=== PATIENT | male | born 1960 | race American Indian/Alaskan Native ===

== ENCOUNTER 2017-10-20 11:56 | Emergency (ER) | payer OTHER ==
[2017-10-20 12:31] VITALS: RESP 18
--- NOTE | 2017-10-20 12:43 | C.PDOC ---
History Of Present Illness 57 y/o male brought in by EMS from health fair at work due to elevated blood pressure. Patient states he works for [employer], and at their health fair today his blood pressure was found to be ~200/100. He offers no physical complaints. States he was diagnosed with HTN previously and given medication that he does not take. He denies any headache, nausea, vomiting, dizziness, chest pain, or SOB. On arrival, blood pressure is 204/104. Time Seen by Provider: 10/20/17 12:18 Chief Complaint (Nursing): High Blood Pressure History Per: Patient History/Exam Limitations: no limitations Current Symptoms Are (Timing): Gone Quality Of Symptoms: Asymptomatic Exacerbating Factor(s): Pos: None Past Medical History Reviewed: Historical Data, Nursing Documentation, Vital Signs Vital Signs: Last Vital Signs Temp 97.8 F 10/20/17 14:59 Pulse 70 10/20/17 14:59 Resp 18 10/20/17 14:59 BP 182/96 H 10/20/17 14:59 Pulse Ox 97 10/20/17 14:59 - Medical History PMH: HTN (no meds taken) Surgical History: No Surg Hx Family History: States: No Known Family Hx - Social History Hx Tobacco Use: Yes Hx Alcohol Use: No Hx Substance Use: No Review Of Systems Except As Marked, All Systems Reviewed And Found Negative. Constitutional: Negative for: Fever, Chills Cardiovascular: Negative for: Chest Pain Respiratory: Negative for: Shortness of Breath Gastrointestinal: Negative for: Nausea, Vomiting Neurological: Negative for: Weakness, Numbness, Headache, Dizziness Physical Exam - Physical Exam Appears: Well, Non-toxic, No Acute Distress Skin: Warm, Dry Head: Atraumatic, Normacephalic Eye(s): bilateral: Normal Inspection, PERRL, EOMI Nose: Normal Oral Mucosa: Moist Neck: Supple Chest: Symmetrical Cardiovascular: Rhythm Regular, No Murmur Respiratory: Normal Breath Sounds, No Rales, No Rhonchi, No Wheezing Gastrointestinal/Abdominal: Soft, No Tenderness, No Distention Extremity: Bilateral: Atraumatic, Normal Color And Temperature, Normal ROM Neurological/Psych: Oriented x3, Normal Speech, Normal Cranial Nerves, Normal Motor, Normal Sensation Gait: Steady ED Course And Treatment - Laboratory Results Result Diagrams: 10/20/17 13:45 10/20/17 13:45 Lab Interpretation: Normal ECG: Interpreted By Me ECG Rhythm: Sinus Bradycardia, Nonspecific Changes ECG Interpretation: No Acute Changes Rate From EC O2 Sat by Pulse Oximetry: 96 (RA) Pulse Ox Interpretation: Normal - Radiology CXR: Interpreted by Me CXR Interpretation: Yes: No Acute Disease - Other Rad CXR X-Ray: Viewed By Me, Read By Radiologist Interpretation: FINDINGS: LUNGS: No active pulmonary disease. PLEURA: No significant pleural effusion identified. No pneumothorax apparent. CARDIOVASCULAR: Normal. OSSEOUS STRUCTURES: Degenerative changes. VISUALIZED UPPER ABDOMEN: Normal. OTHER FINDINGS: None. IMPRESSION: No active disease. Progress Note: treated with norvasc 10 mg PO. Patient has no complains at this time. Advised to follow up with PMD or clinic Reassessment Condition: Improved Medical Decision Making Medical Decision Making: Impression: Uncontrolled hypertension Initial Plan: --Norvasc 10 mg PO --EKG --Labs --Chest X-Ray --Reassess after medication given Disposition Counseled Patient/Family Regarding: Studies Performed, Diagnosis, Need For Followup, Rx Given - Disposition Referrals: [facility] [Outside] [facility] [Outside] Disposition: HOME/ ROUTINE Disposition Time: 14:30 Condition: STABLE Additional Instructions: Follow up with your PMD or clinic for further evaluation Prescriptions: amLODIPine [Norvasc] 5 mg PO DAILY #20 tab Forms: [employer] (Spanish) - POA Present On Arrival: None - Clinical Impression Clinical Impression: Hypertension - PA / SYSTEMS LEAD / Resident Statement MD/DO has reviewed & agrees with the documentation as recorded. - Scribe Statement The provider has reviewed the documentation as recorded by the Scribe (Jennifer Guerra) All medical record entries made by the Scribe were at my direction and personally dictated by me. I have reviewed the chart and agree that the record accurately reflects my personal performance of the history, physical exam, medical decision making, and the department course for this patient. I have also personally directed, reviewed, and agree with the discharge instructions and disposition.
--- NOTE | 2017-10-20 13:24 | RAD ---
Date of service: 10/20/2017 HISTORY: SOB COMPARISON: No prior. TECHNIQUE: Chest PA and lateral FINDINGS: LUNGS: No active pulmonary disease. PLEURA: No significant pleural effusion identified. No pneumothorax apparent. CARDIOVASCULAR: Normal. OSSEOUS STRUCTURES: Degenerative changes. VISUALIZED UPPER ABDOMEN: Normal. OTHER FINDINGS: None. IMPRESSION: No active disease.
[2017-10-20 13:52] LABS: BASO % 0.5 % (0.0-2.0); EOS # 0.1 K/uL (0.0-0.7); EOS % 1.7 % (0.0-4.0); HEMOGLOBIN 14.3 g/dL (12.0-18.0); LYMPH # 1.5 K/uL (1.0-4.3); LYMPH % 35.8 % (20.0-40.0); MEAN CELL VOLUME 82.6 fL (80.0-94.0); MEAN CORPUSCULAR HEMOGLOBIN 28.2 pg (27.0-31.0); MEAN CORPUSCULAR HGB CONC 34.2 g/dL (33.0-37.0); MONO # 0.3 K/uL (0.0-0.8); NEUT # 2.4 K/uL (1.8-7.0); RBC 5.07 Mil/uL (4.40-5.90); RED CELL DISTRIBUTION WIDTH 14.4 % (11.5-14.5); WHITE BLOOD COUNT 4.3 K/uL (4.8-10.8)
[2017-10-20 13:53] LABS: SQUAMOUS EPITHIAL < 1 /hpf (0-5); URINE AMORPHOUS SEDIMENT RARE /ul (<OCC); URINE BILIRUBIN NEGATIVE (NEGATIVE); URINE BLOOD NEGATIVE (NEGATIVE); URINE CLARITY Hazy (Clear); URINE COLOR Yellow (YELLOW); URINE GLUCOSE (UA) NORMAL (Normal); URINE LEUKOCYTE ESTERASE NEG Leu/uL (Negative); URINE PROTEIN NEGATIVE (NEGATIVE); URINE UROBILINOGEN NORMAL mg/dL (0.2-1.0)
[2017-10-20 14:03] LABS: ALB/GLOB RATIO 1.2 (1.0-2.1); ALBUMIN 4.3 g/dL (3.5-5.0); ALT/SGPT 116 U/L (21-72); AST/SGOT 80 U/L (17-59); BLOOD UREA NITROGEN 15 mg/dL (9-20); CALCIUM 9.3 mg/dl (8.6-10.4); GFR NON-AFRICAN AMERICAN > 60
[2017-10-20 15:00] VITALS: BP 182/96; PULSE 70; TEMP 97.8
[2017-10-20 17:38] VITALS: O2SAT 96
--- NOTE | 2017-10-21 20:13 | CARD ---
APPROVED REPORT Date of service: 10/20/2017 EKG Measurement Heart [id number] MA [id number] [id number] <Conclusion> Sinus bradycardia Minimal voltage criteria for LVH, may be normal variant T wave abnormality, consider inferior ischemia Abnormal ECG
== END 2017-10-20 15:00 | disposition home or self-care (01) ==
LOC: C.ER 11:56
DX: I10 Essential (primary) hypertension (principal)